=== PATIENT | female | born 1950 | race Caucasian/White ===

== ENCOUNTER 2017-03-03 07:56 | Outpatient (CLI) | payer BC | END 2017-03-03 19:33 | disposition home or self-care (01) | LOC: SMA 07:56 | PROVIDERS: ATTEND Family Medicine | DX: Z12.31 Encounter for screening mammogram for malignant neoplasm of breast (principal) | CPT/HCPCS: G0202 ==

== ENCOUNTER 2018-03-06 08:24 | Outpatient (CLI) | payer BC | END 2018-03-06 20:38 | disposition home or self-care (01) | LOC: SMA 08:24 | PROVIDERS: ATTEND Family Medicine | DX: Z12.31 Encounter for screening mammogram for malignant neoplasm of breast (principal) | CPT/HCPCS: 77067 ==

== ENCOUNTER 2019-03-08 16:25 | Outpatient (CLI) | payer BC | END 2019-03-08 21:17 | disposition home or self-care (01) | LOC: SMA 16:25 | DX: Z12.31 Encounter for screening mammogram for malignant neoplasm of breast (principal) | CPT/HCPCS: 77067 ==

== ENCOUNTER 2019-07-23 11:35 | Inpatient (IN) | payer BC, OTHER ==
[~2019-07-23] VITALS: Ht 167.6 cm; Wt 104.3 kg
--- NOTE | 2019-07-23 11:40 | NUR ---
Patient to ER bed 03 to gown for evaluation. Side rails up.
--- NOTE | 2019-07-23 11:50 | NUR ---
Pt brought by self, ambulatory, A&Ox4, pt presents to ER with bright red rectal bleeding, denies pain denies N/V, skin pink and warm, cap refill <3, VSS, respirations even unlabored.
[2019-07-23 11:56] VITALS: BP_SYST 159
[2019-07-23] MEDS ORDERED: NACL 0.9% 1,000 ML IV ONE (13:15)
[2019-07-23 13:37] LABS: BASOPHILS # (AUTO) 0.1 K/uL (0.0-0.2); BASOPHILS % (AUTO) 0.9 % (0.0-2.0); EOSINOPHILS # (AUTO) 0.1 K/uL (0.0-0.4); EOSINOPHILS % (AUTO) 1.5 % (0.0-4.0); HEMATOCRIT 42.7 % (36-48); HEMOGLOBIN 14.2 g/dL (12.0-16.0); LYMPHOCYTES # (AUTO) 2.2 K/uL (1.0-5.5); LYMPHOCYTES % (AUTO) 30.1 % (20.5-51.5); MEAN CORPUSCULAR HEMOGLOBIN 30 pg (27-31); MEAN CORPUSCULAR HGB CONC 33 % (32-36); MEAN CORPUSCULAR VOLUME 90 fL (79.0-98.0); MONOCYTES # (AUTO) 0.5 K/uL (0.0-1.0); MONOCYTES % (AUTO) 7.2 % (1.7-9.3); NEUTROPHILS # (AUTO) 4.5 K/uL (1.8-7.7); NEUTROPHILS % (AUTO) 60.3 % (40.0-70.0); PLATELET COUNT (AUTO) 264 K/uL (130-430); RED BLOOD CELL COUNT(AUTO) 4.73 MIL/uL (4.2-6.2); RED CELL DISTRIBUTION WIDTH 13.5 % (9.0-15.0); WHITE BLOOD COUNT (AUTO) 7.4 K/uL (4.8-10.8)
--- NOTE | 2019-07-23 13:42 | NUR ---
ER Dr. Guadalupe at bedside examining patient.
[2019-07-23 14:06] LABS: CALCIUM 8.8 mg/dL (8.4-11.0); CREATININE 0.74 mg/dL (0.55-1.30); POTASSIUM 4.1 mmol/L (3.5-5.1)
[2019-07-23 14:12] LABS: ALBUMIN 3.5 g/dL (3.4-4.8); TOTAL BILIRUBIN 0.4 mg/dL (0.0-1.0)
--- NOTE | 2019-07-23 14:30 | NUR ---
ER Dr. Guadalupe at bedside for pt rectal exam.
--- NOTE | 2019-07-23 14:35 | NUR ---
Report given to Gilbert CHRISTIE
--- NOTE | 2019-07-23 14:47 | NUR ---
REPORT RECEIVED AND TOSHIA TO ASSUME CARE. PT CALM ALERT, RESP UNLABORED, SKIN WARM AND DRY. COMMUNICATES CLEARLY IN FULL COMPLETE SENTENCES. DENIES PAIN. PT STOOL GUIAC SENT. PT UP TO BATHROOM STEADY GAIT, NO DYSPNEA. IV 22 GUAGE RT AC. IV NS INFUSING, SITE CLEAR.
--- NOTE | 2019-07-23 16:43 | NUR ---
TRANSPORTED TO CT. PT CALM, ALERT, RESP UNLABORED, NO DISTRESS.
--- NOTE | 2019-07-23 17:13 | NUR ---
INITIAL NOTE: RECEIVED REPORT FROM SHAHNAZ BLACK. PATIENT BROUGHT TO THE FLOOR IN A WHEELCHAIR. PATIENT IS AWAKE AND ALERT x4 AND WALKED STEADILY TO THE BED. PATIENT IS TOLERATING OXYGEN ON ROOM AIR WITH NO SIGNS OF DISTRESS OR SHORTNESS OF BREATH NOTED. IV SITE IS PATENT WITH NO SIGNS OF INFILTRATION NOTED. VITALS STABLE. PATIENT IN STABLE CONDITION. SAFETY, FALL AND ASPIRATION PRECAUTIONS ARE IN PLACE. BED LOCKED IN LOWEST POSITION WITH CALL LIGHT IN REACH. WILL CONTINUE TO MONITOR PATIENT FOR ANY CHANGES.
[2019-07-23 17:19] VITALS: BP_SYST 146
--- NOTE | 2019-07-23 18:58 | NUR ---
CLOSING NOTES: PATIENT IS AWAKE AND ALERT x4 LAYING DOWN IN BED. PATIENT IS TOLERATING OXYGEN ON ROOM AIR WITH NO SIGNS OF DISTRESS OR SHORTNESS OF BREATH NOTED. IV SITE IS PATENT WITH NO SIGNS OF INFILTRATION NOTED. VITALS STABLE. PATIENT IN STABLE CONDITION. SAFETY, FALL AND ASPIRATION PRECAUTIONS ARE IN PLACE. BED LOCKED IN LOWEST POSITION WITH CALL LIGHT IN REACH. WILL ENDORSE PATIENT CARE TO ONCOMING TELEVISION NEWS REPORTER NURSE.
[2019-07-23 20:00] VITALS: BP_SYST 144
--- NOTE | 2019-07-23 20:00 | NUR ---
ASSUMED CARE. RECEIVED ALERT,ORIENTED, AMBULATORY. AFEBRILE, NOT IN ACUTE DISTRESS. DENIES ANY PAIN OR DISCOMFORT. VERBALIZED HAVING RECTAL BLEEDING WHEN USING THE RESTROOM. NO DIET OR MEDS ORDERED AT THIS TIME. WILL REMIND MD. VS ARE OTHERWISE STABLE. WILL CONTINUE TO MONITOR.
--- NOTE | 2019-07-23 21:50 | NUR ---
IN THE UNIT (EAST SIDE), MADE AWARE OF PATIENT HAVING NO DIET,MEDICATION ORDERS YET. SHE SAID SHE WILL PUT IN ORDERS.
--- NOTE | 2019-07-24 | NUR ---
ASLEEP, NOT IN ANY KIND OF DISTRESS. NO PAIN OR DISCOMFORT NOTED. SIDE RAILS UP, CALL LIGHT WITHIN REACH. KEPT WARM AND COMFORTABLE. VS REMAIN STABLE.
[2019-07-24 00:25] VITALS: BP_SYST 124
[2019-07-24] MEDS: NACL 0.9% 1,000 ML IV SCH ×2 (01:19→11:00)
--- NOTE | 2019-07-24 01:19 | NUR ---
IV FLUID NORMAL SALINE @ 100 ML/HR STARTED.
--- NOTE | 2019-07-24 01:24 | NUR ---
Consultation Paged Reason for Consultation: GI BLEED Was consult called: Y Person who was notified: Becky Consulting Physician: John Cavazos Vault Maker Ordering Physician: Dr. Castañeda
[2019-07-24] MEDS ORDERED: PANTOPRAZOLE SODIUM 40 MG/VIAL (PROTONIX) IVP SCH (02:15)
[2019-07-24] MEDS ORDERED: ONDANSETRON HCL 4 MG/2 ML VIAL IVP PRN (02:15)
[2019-07-24] MEDS ORDERED: ALBUTEROL SULFATE 0.083% 2.5 MG/3 ML VIAL.NEB INH PRN (02:15)
[2019-07-24] MEDS ORDERED: MORPHINE 2 MG/ML INJ. SYRINGE IVP PRN (02:15)
--- NOTE | 2019-07-24 02:19 | NUR ---
MORE ORDERS GIVEN. PROTONIX 40 MG IVP GIVEN ORDERED.
[2019-07-24 02:29] VITALS: BP_SYST 124
--- NOTE | 2019-07-24 03:50 | NUR ---
SLEEPING, NOT IN ANY KIND OF DISTRESS. NO SIGNIFICANT CHANGE. PT. REMAINS STABLE AND PAIN FREE.
[2019-07-24 06:42] LABS: BASOPHILS % (AUTO) 0.4 % (0.0-2.0); EOSINOPHILS # (AUTO) 0.2 K/uL (0.0-0.4); EOSINOPHILS % (AUTO) 2.4 % (0.0-4.0); HEMATOCRIT 39.4 % (36-48); LYMPHOCYTES # (AUTO) 1.9 K/uL (1.0-5.5); LYMPHOCYTES % (AUTO) 28.2 % (20.5-51.5); MEAN CORPUSCULAR HEMOGLOBIN 30 pg (27-31); MEAN CORPUSCULAR HGB CONC 33 % (32-36); MEAN CORPUSCULAR VOLUME 91 fL (79.0-98.0); MONOCYTES # (AUTO) 0.6 K/uL (0.0-1.0); MONOCYTES % (AUTO) 8.6 % (1.7-9.3); NEUTROPHILS # (AUTO) 4.1 K/uL (1.8-7.7); NEUTROPHILS % (AUTO) 60.4 % (40.0-70.0); PLATELET COUNT (AUTO) 240 K/uL (130-430); RED BLOOD CELL COUNT(AUTO) 4.33 MIL/uL (4.2-6.2); RED CELL DISTRIBUTION WIDTH 13.8 % (9.0-15.0); WHITE BLOOD COUNT (AUTO) 6.8 K/uL (4.8-10.8)
[2019-07-24 07:08] LABS: CALCIUM 8.2 mg/dL (8.4-11.0); CREATININE 0.69 mg/dL (0.55-1.30); TOTAL BILIRUBIN 0.5 mg/dL (0.0-1.0)
--- NOTE | 2019-07-24 07:14 | NUR ---
ENDORSED CARE TO VAIBHAV MORA.
[2019-07-24] MEDS ORDERED: METR500T PO (10:10)
[2019-07-24] MEDS ORDERED: LEVO500T89 PO (10:10)
--- NOTE | 2019-07-24 11:05 | NUR ---
Patient A&O x4. Vital signs within normal limits. Patient reports lower abdominal discomfort in her right and left lower quadrants that goes away once she has a bowel movement. Patients current stool is formed with blood mixed in. IV fluids going and patient is resting.
[2019-07-24 16:51] VITALS: BP_SYST 139
--- NOTE | 2019-07-29 11:58 | NUR ---
Discharge Follow Up Phone Call Phoned patient, . Patient stated she was doing better. She still has blood in her stool, but less every day. She filled her prescriptions and is taking her medication, including stool softener, every day. She has not called her PCP for an auth to see the GI yet. Explained she should call today so her GI appointment can be made in one to three weeks from today. Patient agreed and did not need assistance to make appointments. No questions or concerns.
== END 2019-07-24 13:50 | disposition home or self-care (01) | DRG 392 ==
LOC: SED 11:35 → SMU 16:52
PROVIDERS: ADMIT Internal Medicine Hospice and Palliative Medicine; ATTEND Internal Medicine Hospice and Palliative Medicine
DX: K57.90 Diverticulosis of intestine, part unspecified, without perforation or abscess without bleeding (principal); K62.5 Hemorrhage of anus and rectum
CPT/HCPCS: 36415; 80053; 82272; 85025; 96360; 99285; C9113; J7030

== ENCOUNTER 2020-03-09 08:11 | Outpatient (CLI) | payer BC, OTHER ==
[~2020-03-09 08:11] MED LIST: LEVO500T89 PO; METR500T PO
== END 2020-03-10 15:11 | disposition home or self-care (01) ==
LOC: SMA 08:11
PROVIDERS: ATTEND Family Medicine
DX: Z12.31 Encounter for screening mammogram for malignant neoplasm of breast (principal)
CPT/HCPCS: 77067

== ENCOUNTER 2021-03-19 12:45 | Outpatient (CLI) | payer BC, OTHER | END 2021-03-19 20:17 | disposition home or self-care (01) | LOC: SMA 12:45 | PROVIDERS: ATTEND Family Medicine | DX: Z12.31 Encounter for screening mammogram for malignant neoplasm of breast (principal) | CPT/HCPCS: 77067 ==

== ENCOUNTER 2023-06-02 07:28 | Inpatient (IN) | payer OTHER ==
[~2023-06-02] VITALS: Ht 170.2 cm; Wt 96.2 kg
[~2023-06-02 07:28] MED LIST changes: +LEVO-62 PO; -LEVO500T89 PO
[2023-06-02] MEDS ORDERED: CEFAZOLIN SOD 2 GM in D5W 50 ML IV ONE (07:45)
[2023-06-02] MEDS ORDERED: SCOPOLAMINE HYDROBROMIDE 1 MG PATCH .72 H (TRANSDERM-SCOP) TD ONE (07:46)
[2023-06-02] MEDS ORDERED: ACETAMINOPHEN 500 MG TABLET ONE (07:46)
[2023-06-02] MEDS ORDERED: GABAPENTIN 300 MG CAPSULE ONE (07:47)
[2023-06-02] MEDS ORDERED: oxyCODONE HCL 10 MG TAB.ER.12H PO ONE (07:47)
[2023-06-02] MEDS ORDERED: CELECOXIB 100 MG CAPSULE ONE (07:48)
[2023-06-02] MEDS: SCOPOLAMINE HYDROBROMIDE 1 MG PATCH .72 H (TRANSDERM-SCOP) TD ONE (08:37)
[2023-06-02] MEDS: GABAPENTIN 300 MG CAPSULE PO ONE (08:37)
[2023-06-02] MEDS: ACETAMINOPHEN 500 MG TABLET PO ONE (08:37)
[2023-06-02] MEDS: CELECOXIB 100 MG CAPSULE PO ONE (08:37)
[2023-06-02] MEDS: oxyCODONE HCL 10 MG TAB.ER.12H PO ONE (10:00)
[2023-06-02] MEDS ORDERED: VANCOMYCIN HCL 1000 MG/VIAL IV ONE (10:22)
[2023-06-02] MEDS ORDERED: WATER FOR IRRIGATION,STERILE 1,000 ML IRRIG.SOLN IR ONE (10:22)
[2023-06-02] MEDS ORDERED: NS IRRIG SOLN 1000 ML IR ONE (10:22)
[2023-06-02] MEDS ORDERED: DEXAMETHASONE SOD PHOSPHATE 4 MG/ML VIAL ONE (10:22)
[2023-06-02] MEDS ORDERED: TRANEXAMIC ACID 1,000 MG/10 ML VIAL ONE (10:22)
[2023-06-02] MEDS ORDERED: ePHEDrine sulfate 50 MG/ML VIAL ONE (10:22)
[2023-06-02] MEDS ORDERED: BUPIVACAINE /PF 0.25% 30 ML VIAL INJ ONE (10:22)
[2023-06-02] MEDS ORDERED: LR 1,000 ML IV.SOLN IV ONE (10:22)
[2023-06-02] MEDS ORDERED: BUPIVACAINE /PF 0.5% 30 ML VIAL ONE (10:22)
[2023-06-02] MEDS ORDERED: NS 1000 ML IV.SOLN IV ONE (10:22)
[2023-06-02] MEDS ORDERED: PROPOFOL 200MG/ 20ML VIAL (DIPRIVAN) IV ONE (10:22)
[2023-06-02 10:23] VITALS: PULSE 66; RESP 20; O2SAT 98
[2023-06-02] MEDS ORDERED: fentaNYL CITRATE/PF 100 MCG/2 ML AMP ONE (10:26)
[2023-06-02] MEDS ORDERED: KETAMINE HCL IN 0.9 % NACL 50 MG/5 ML SYRINGE ONE (10:26)
[2023-06-02] MEDS ORDERED: METOCLOPRAMIDE HCL 10 MG/2 ML VIAL IVP PRN (10:30)
[2023-06-02] MEDS ORDERED: LACTULOSE 20 GM/30 ML UDC PO PRN (10:30)
[2023-06-02] MEDS ORDERED: BISACODYL 10 MG/SUPPOSITORY RC PRN (10:30)
[2023-06-02] MEDS ORDERED: NALOXONE HCL 0.4 MG/ML AMP (NARCAN) IVP PRN ×4 (10:30→12:45)
[2023-06-02] MEDS ORDERED: DIPHENHYDRAMINE HCL 25 MG CAPSULE PO PRN (10:30)
[2023-06-02] MEDS ORDERED: BENA-6 PO (10:53)
[2023-06-02] MEDS ORDERED: VIT B12 PO (10:53)
[2023-06-02] MEDS ORDERED: OSCD500 PO (10:53)
[2023-06-02] MEDS ORDERED: oxyCODONE HCL 5 MG TABLET PO PRN ×2 (11:00)
[2023-06-02] MEDS ORDERED: LORATADINE 10 MG TABLET PO PRN (11:00)
[2023-06-02] MEDS ORDERED: traMADol HCL HCL 50 MG TABLET (ULTRAM) PO PRN (11:00)
[2023-06-02] MEDS ORDERED: HYDROmorphone 1 MG/ML INJ. CARTRIDGE IVP PRN ×5 (11:00→12:45)
[2023-06-02] MEDS ORDERED: ONDANSETRON HCL 4 MG/2 ML VIAL IVP PRN ×2 (11:45→12:45)
[2023-06-02 12:27] VITALS: BP_SYST 133
[2023-06-02] MEDS ORDERED: KETOROLAC TROMETHAMINE 30 MG VIAL IM PRN (12:45)
[2023-06-02] MEDS ORDERED: hydrALAZINE HCL 20 MG/ML VIAL IV PRN (12:45)
[2023-06-02] MEDS ORDERED: ACETAMINOPHEN 500 MG TABLET PO SCH (15:00)
[2023-06-02] MEDS: KETOROLAC TROMETHAMINE 10 MG TABLET (TORADOL) PO SCH (16:25)
[2023-06-02] MEDS ORDERED: ceFAZolin SODIUM 2 GM in D5W 50 ML IV SCH (21:00)
[2023-06-02] MEDS ORDERED: SENNOSIDES/DOCUSATE SODIUM 1 TAB TABLET(SENOKOT-S) PO SCH (21:00)
[2023-06-03] MEDS ORDERED: ceFAZolin SODIUM 2 GM in D5W 100 ML IV ONE (08:30)
[2023-06-03] MEDS ORDERED: ASPIRIN 81 MG TAB.CHEW PO SCH (09:00)
[2023-06-03] MEDS ORDERED: DECADRON 4 MG TABLET PO SCH (09:00)
[2023-06-03] MEDS ORDERED: CELECOXIB 200 MG CAPSULE PO SCH (11:00)
== END 2023-06-02 16:05 | disposition home health service (06) | DRG 470 ==
LOC: SMU 07:28
PROVIDERS: ADMIT Student in an Organized Health Care Education/Training Program; ATTEND Student in an Organized Health Care Education/Training Program
PROC: 0SRC0J9 Replacement of Right Knee Joint with Synthetic Substitute, Cemented, Open Approach (ICD-10-PCS; principal; 2023-06-02 10:22)
DX: M17.11 Unilateral primary osteoarthritis, right knee (principal)
CPT/HCPCS: 73560; 87081; 88305; 88311; 96379; 97110-GP; 97116-GP; 97530-GP; C1713; C1776; J0690; J0696; J1100; J2704; J3010; J3370; J3490; J7030; J7060; J7120